=== PATIENT | female | born 1955 | race Caucasian/White ===

== ENCOUNTER 2017-11-17 16:03 | Emergency (ER) | payer BC, MEDICAID ==
--- NOTE | 2017-11-17 16:35 | EDM.PDOC ---
ED HPI GENERAL MEDICAL PROBLEM - General Chief Complaint: General Stated Complaint: ABDOMINAL PAIN Time Seen by Provider: 11/17/17 16:10 Source of Information: Reports: Patient History Limitations: Reports: No Limitations - History of Present Illness INITIAL COMMENTS - FREE TEXT/NARRATIVE: According to patient she has been having abdominal pain for past 4 days. Pain has been all over the abdomen and is colicky. She has been having loose stools, which has got worse today. She claims she has had 7 bouts of diarrhea today. Stool have got from watery to mucus brown stools now. Abdominal cramping before stools. No blood in the stools. No fever or chills. Abdominal pain has got worse. Has been passing flatus. No dysuria, but has dark colored urine. No cough, SOB or wheezing. Onset Date: 11/13/17 Duration: Intermittent, Waxing/Waning Location: Reports: Abdomen Quality: Reports: Ache, Dull Severity: Moderate Associated Symptoms: Reports: Nausea/Vomiting, Weakness. Denies: Confusion, Chest Pain, Cough, Diaphoresis, Fever/Chills, Headaches, Malaise, Rash, Seizure , Shortness of Breath, Syncope - Related Data Allergies Allergy/AdvReac Type Severity Reaction Status Date / Time codeine Allergy Nausea and Verified 11/17/17 16:29 Vomiting Home Meds: Home Meds Insulin Aspart [NovoLOG] 24 unit SQ TID 11/17/17 [History] Insulin Glarg,Human.Rec.Analog [Lantus] 36 unit SQ BID 11/17/17 [History] glipiZIDE [Glipizide ER] 20 mg PO DAILY 11/17/17 [History] metFORMIN [Glucophage] 500 mg PO BIDMEALS 11/17/17 [History] ED ROS GENERAL - Review of Systems Review Of Systems: See Below Constitutional: Denies: Fever, Chills, Night Sweats, Diaphoresis HEENT: Denies: Rhinitis, Sinus Problem, Throat Pain, Throat Swelling Respiratory: Denies: Shortness of Breath, Wheezing, Pleuritic Chest Pain, Cough , Sputum Cardiovascular: Denies: Chest Pain, Lightheadedness GI/Abdominal: Reports: Abdominal Pain, Diarrhea, Nausea, Vomiting : Denies: Dysuria, Flank Pain, Frequency, Hematuria Musculoskeletal: Denies: Joint Pain, Joint Swelling Skin: Denies: Jaundice, Pruritis, Rash, Wound ED EXAM, GENERAL - Physical Exam Exam: See Below Exam Limited By: No Limitations General Appearance: Alert, WD/WN, No Apparent Distress Eye Exam: Bilateral Eye: EOMI, PERRL Ears: Normal External Exam, Normal Canal, Hearing Grossly Normal, Normal TMs Ear Exam: Bilateral Ear: Auricle Normal, Canal Normal, TM normal Nose: Normal Inspection, Normal Mucosa, No Blood Throat/Mouth: Normal Inspection, Normal Lips, Normal Teeth, Normal Gums, Normal Oropharynx, Normal Voice, No Airway Compromise Head: Atraumatic, Normocephalic Neck: Normal Inspection, Supple, Non-Tender, Full Range of Motion Respiratory/Chest: No Respiratory Distress, Lungs Clear, Normal Breath Sounds, No Accessory Muscle Use, Chest Non-Tender Cardiovascular: Normal Peripheral Pulses, Regular Rate, Rhythm, No Edema, No Gallop, No JVD, No Murmur, No Rub GI/Abdominal: Normal Bowel Sounds, Soft, No Organomegaly, No Distention, No Abnormal Bruit, No Mass, Tender (all over the abdomen.). No: Guarding, Rigid, Rebound Back Exam: Normal Inspection, Full Range of Motion Extremities: Normal Inspection, Normal Range of Motion, Non-Tender, Normal Capillary Refill, No Pedal Edema Skin Exam: Warm, Intact Course - Vital Signs Text/Narrative:: Pt's clinical exam is normal. She has been slightly nauseous. She has acute GE. Will get CBC, CMP, Lipase. AXR now. CBC is normal. CMP is normal and electrolytes are normal. Her Abdominal xray appears normal. UA shows 5-15 WBC and lucs positiv. She has acute gastroenteritis with normal hydration. She did receive toradol 60mg IM and Zofran 4mg IM. Advised clear liquid diet for next 24 hrs. Education given. Also she has mild UTI, started on cipro 500mg twice daily for 3 days. Followup with her primary care provider next week for recheck. - Orders/Labs/Meds Orders: Active Orders 24 hr Category Date Time Status Abdomen 1V Upright [CR] Stat Exams 11/17/17 16:28 Taken Ketorolac [Toradol] Med 11/17/17 17:51 Once 60 mg IM ONETIME ONE Ondansetron [Zofran] Med 11/17/17 17:52 Once 4 mg IM ONETIME ONE Medication Orders Ketorolac Tromethamine (Toradol) 60 mg IM ONETIME ONE Stop: 11/17/17 17:52 Ondansetron HCl (Zofran) 4 mg IM ONETIME ONE Stop: 11/17/17 17:53 Labs: Laboratory Tests 11/17/17 11/17/17 11/17/17 Range/Units 14:30 16:45 16:45 WBC 12.7 H D (4.0-11.0) K/uL RBC 5.21 (3.80-5.80) M/uL Hgb 15.5 (11.5-16.5) g/dL Hct 45.1 (37.0-47.0) % MCV 87 (76-96) fL MCH 29.8 (27.0-32.0) pg MCHC 34.4 (31.0-35.0) g/dL RDW 13.7 (11.0-16.0) % Plt Count 116 L (150-500) K/uL MPV 10.5 H (6.0-10.0) fL Neut % (Auto) 86.5 H (45.0-70.0) % Lymph % (Auto) 8.8 L (20.0-40.0) % [place] % (Auto) 4.1 (3.0-10.0) % Eos % (Auto) 0.3 L (1.0-5.0) % Baso % (Auto) 0.3 (0.0-0.5) % Neut # (Auto) 10.94 H (2.00-7.50) K/uL Lymph # (Auto) 1.11 L (1.50-4.00) K/uL [place] # (Auto) 0.52 (0.20-0.80) K/uL Eos # (Auto) 0.04 (0.04-0.40) K/uL Baso # (Auto) 0.04 (0.02-0.10) K/uL Sodium 138 (136-145) mmol/L Potassium 3.9 (3.5-5.1) mmol/L Chloride 99 (98-107) mmol/L Carbon Dioxide 25.0 (21.0-32.0) mmol/L Anion Gap 17.9 H (5.0-15.0) mmol/L BUN 14 (8-26) mg/dL Creatinine 0.92 (0.55-1.02) mg/dL Est Cr Clr Drug Dosing TNP Estimated GFR (MDRD) > 60 (>60) MLS/MIN BUN/Creatinine Ratio 15.2 (6-25) Glucose 228 H (74-100) mg/dL Calcium 8.8 (8.5-10.1) mg/dL Total Bilirubin 1.5 H D (0.0-1.0) mg/dL AST 31 (15-37) U/L ALT 41 (12-78) U/L Alkaline Phosphatase 137 H (46-116) U/L Total Protein 7.9 (6.4-8.2) g/dL Albumin 3.5 (3.4-5.0) g/dL Globulin 4.4 H (2.2-4.2) g/dL Albumin/Globulin Ratio 0.8 (0.8-2.0) Lipase 75 (73-393) U/L Urine Color Yellow Urine Appearance Clear (CLEAR) Urine pH 5.0 (5.0-8.0) Ur Specific [place] >= 1.030 (1.003-1.030) Urine Protein Negative (NEGATIVE) mg/dL Urine Glucose (UA) Negative (NEGATIVE) mg/dL Urine Ketones 15 H (NEGATIVE) mg/dL Urine Occult Blood Trace-intact H (NEGATIVE) Urine Nitrite Negative (NEGATIVE) Urine Bilirubin Negative (NEGATIVE) Urine Urobilinogen 0.2 (0.2-1.0) E.U./dL Ur Leukocyte Esterase Trace H (NEGATIVE) Urine RBC 0-5 H /HPF Urine WBC 5-10 H /HPF Ur Squamous Epith Cells Few /HPF Urine Bacteria Few /HPF Meds: Medications Generic Name Dose Route Start Last Admin Trade Name Freq PRN Reason Stop Dose Admin Ketorolac Tromethamine 60 mg 11/17/17 17:51 Toradol IM 11/17/17 17:52 ONETIME ONE Ondansetron HCl 4 mg 11/17/17 17:52 Zofran IM 11/17/17 17:53 ONETIME ONE Discontinued Medications Generic Name Dose Route Start Last Admin Trade Name Freq PRN Reason Stop Dose Admin Ketorolac Tromethamine Confirm 11/17/17 17:51 Toradol Administered 11/17/17 17:52 Dose 60 mg .ROUTE .STK-MED ONE Ondansetron HCl Confirm 11/17/17 17:52 Zofran Administered 11/17/17 17:53 Dose 4 mg .ROUTE .STK-MED ONE Departure - Departure Time of Disposition: 18:00 Disposition: Home, Self-Care 01 Condition: Good Clinical Impression: Acute gastroenteritis, UTI (urinary tract infection) - Discharge Information Referrals: PCP,None [Primary Care Provider] - Forms: ED Department Discharge Additional Instructions: She has acute gastroenteritis with normal hydration. She did receive toradol 60mg IM and Zofran 4mg IM. Advised clear liquid diet for next 24 hrs. Education given. Also she has mild UTI, started on cipro 500mg twice daily for 3 days. Followup with her primary care provider next week for recheck. - Problem List & Annotations (1) Acute gastroenteritis SNOMED Code(s): 24082631 Code(s): K52.9 - NONINFECTIVE GASTROENTERITIS AND COLITIS, UNSPECIFIED Status: Acute Current Visit: Yes (2) UTI (urinary tract infection) SNOMED Code(s): 67408396 Code(s): N39.0 - URINARY TRACT INFECTION, SITE NOT SPECIFIED Status: Acute Current Visit: Yes - Problem List Review Problem List Initiated/Reviewed/Updated: Yes - My Orders Last 24 Hours: My Active Orders 11/17/17 16:28 Abdomen 1V Upright [CR] Stat 11/17/17 17:51 Ketorolac [Toradol] 60 mg IM ONETIME ONE 11/17/17 17:52 Ondansetron [Zofran] 4 mg IM ONETIME ONE - Assessment/Plan Last 24 Hours: My Active Orders 11/17/17 16:28 Abdomen 1V Upright [CR] Stat 11/17/17 17:51 Ketorolac [Toradol] 60 mg IM ONETIME ONE 11/17/17 17:52 Ondansetron [Zofran] 4 mg IM ONETIME ONE Assessment:: Acute GE with UTi Plan: She has acute gastroenteritis with normal hydration. She did receive toradol 60mg IM and Zofran 4mg IM. Advised clear liquid diet for next 24 hrs. Education given. Also she has mild UTI, started on cipro 500mg twice daily for 3 days. Followup with her primary care provider next week for recheck.
[2017-11-17] MEDS ORDERED: Ciprofloxacin 500 MG Tab ONE (17:00)
[2017-11-17] MEDS ORDERED: Ondansetron 4 MG Tab.DIS ONE (17:00)
[2017-11-17] MEDS ORDERED: Ketorolac 60 MG/2 ML SDV IM ONE (17:51)
[2017-11-17] MEDS ORDERED: Ketorolac 60 MG/2 ML SDV ONE (17:51)
[2017-11-17] MEDS ORDERED: Ondansetron 4 MG/2 ML SDV ONE (17:52)
[2017-11-17] MEDS ORDERED: Ondansetron 4 MG/2 ML SDV IM ONE (17:52)
--- NOTE | 2017-11-18 23:31 | CR ---
DATE OF SERVICE: 11/17/2017 CLINICAL DATA: Abdominal pain or distension. UPRIGHT ABDOMEN: There are surgical clips in the right upper quadrant consistent with prior cholecystectomy. There are a few scattered air-fluid levels noted within the colon and small bowel on the upright view. No distended loops of bowel. No free air. Followup imaging is recommended if clinically indicated. [id number] MTDD
== END 2017-11-17 18:00 | disposition home or self-care (01) ==
LOC: LB.ED 16:03
DX: K52.9 Noninfective gastroenteritis and colitis, unspecified (principal); N39.0 Urinary tract infection, site not specified; Z88.5 Allergy status to narcotic agent; Z79.4 Long term (current) use of insulin
CPT/HCPCS: 36415; 74018; 80053; 81001; 83690; 85025; 96372; 99284; A9270; J1885; J2405

== ENCOUNTER 2020-11-06 11:14 | Emergency (ER) | payer BC ==
[2020-11-06] MEDS: Sodium Chloride 0.9% 50 ML SDV FLUSH ONE (11:30)
[2020-11-06] MEDS: Ketorolac 60 MG/2 ML SDV IM ONE (11:34)
[2020-11-06] MEDS: Orphenadrine 60 MG/2 ML Inj IM ONE (11:41)
--- NOTE | 2020-11-06 12:05 | EDM.PDOC ---
ED HPI GENERAL MEDICAL PROBLEM - General Chief Complaint: General Stated Complaint: HIP PAIN Time Seen by Provider: 11/06/20 11:30 Source of Information: Reports: Patient, Significant Other History Limitations: Reports: No Limitations - History of Present Illness INITIAL COMMENTS - FREE TEXT/NARRATIVE: Ms. Rajan is a 65 YO Diabetic female who is here for chronic pain from aw aiting to have total Rt hip replaced. She is scheduled in December for surgery. She is awaiting still to be cleared by Cardiology. Ortho has her off all opioid medications prior to her surgery. She has concerns of not being able to walk to the bathroom or do normal ADL due to her pain and difficulty ambulating. Both LE are swollen with mild erythema. Skin is warm. No Fever. No abdominal pain. No N, V or D. Onset: Other (chronic osteoarthritis ) Duration: Chronic Location: Reports: Lower Extremity, Right Quality: Reports: Ache, Throbbing Severity: Severe Improves with: Reports: None Worsens with: Reports: Movement Context: Reports: Other Associated Symptoms: Reports: Weakness Treatments COMPLAINT ANALYST: Reports: NSAIDS (meloxicam ) Right Hip Pain Score (Numeric/FACES): 7 - Related Data Allergies Allergy/AdvReac Type Severity Reaction Status Date / Time codeine Allergy Nausea and Verified 11/06/20 11:19 Vomiting Home Meds: Home Meds Insulin Aspart [NovoLOG] 12 unit SQ TID 11/17/17 [History] Fluticasone/Vilanterol [Breo Ellipta 100-25 MCG Inhalation Kit] 1 inhaler PO DAILY 11/06/20 [History] Insulin Degludec [Tresiba] 36 units SQ ASDIRECTED 11/06/20 [History] Liraglutide [Victoza] See Protocol 11/06/20 [History] Meloxicam 15 mg PO DAILY 11/06/20 [History] lisinopriL [Lisinopril] 20 mg PO DAILY 11/06/20 [History] Social & Family History - Caffeine Use Caffeine Use: Reports: None - Recreational Drug Use Recreational Drug Use: No ED ROS GENERAL - Review of Systems Review Of Systems: Comprehensive ROS is negative, except as noted in HPI. Musculoskeletal: Reports: Leg Pain, Joint Swelling, Muscle Pain, Muscle Stiffness Skin: Reports: Dryness, Erythema, Other (edema BLE) ED EXAM, GENERAL - Physical Exam Exam: See Below Exam Limited By: No Limitations General Appearance: Alert, Anxious, Severe Distress Eye Exam: Bilateral Eye: PERRL Ears: Normal External Exam Nose: Normal Inspection, Normal Mucosa Throat/Mouth: Normal Inspection, Normal Lips Head: Atraumatic, Normocephalic Neck: Normal Inspection, Supple, Non-Tender Respiratory/Chest: No Respiratory Distress, Lungs Clear, Normal Breath Sounds Cardiovascular: Normal Peripheral Pulses, Regular Rate, Rhythm Peripheral Pulses: 2+: Brachial (R), Radial (L) GI/Abdominal: Normal Bowel Sounds, Soft, Non-Tender Back Exam: Normal Inspection Extremities: Pedal Edema, Leg Pain Neurological: Alert, Oriented, CN II-XII Intact Psychiatric: Anxious, Depressed Mood, Tearful Skin Exam: Warm, Dry, Intact, Erythema Lymphatic: No Adenopathy Course - Vital Signs Last Recorded V/S: Last Vital Signs Temp 37.1 C 11/06/20 13:21 Pulse 96 11/06/20 13:21 Resp 16 11/06/20 13:21 BP 163/74 H 11/06/20 13:21 Pulse Ox 97 11/06/20 13:21 - Orders/Labs/Meds Orders: Active Orders 24 hr Category Date Time Status Chest w Cont [CT] Stat Exams 11/06/20 12:18 Taken UA RFX SHERYL AND CULT IF INDIC [URIN] Stat Lab 11/06/20 11:23 Ordered Iopamidol [Isovue-370 (76%)] Med 11/06/20 13:30 Active 100 ml IV . DIRECTED Sodium Chloride 0.9% [Normal Saline] 1,000 ml Med 11/06/20 12:15 Active IV ASDIRECTED Medication Orders Sodium Chloride (Normal Saline) 1,000 mls @ 500 mls/hr IV ASDIRECTED MANJIT Last Admin: 11/06/20 12:34 Dose: 500 mls/hr Documented by: AYSE Iopamidol (Isovue-370 (76%)) 100 ml IV . DIRECTED [facility] Labs: Laboratory Tests 11/06/20 11/06/20 11/06/20 Range/Units 11:23 11:40 11:40 WBC 5.8 D (4.0-11.0) K/uL RBC 4.18 (3.80-5.80) M/uL Hgb 13.0 (11.5-16.5) g/dL Hct 38.9 (37.0-47.0) % MCV 93 (76-96) fL MCH 31.1 (27.0-32.0) pg MCHC 33.4 (31.0-35.0) g/dL RDW 14.8 (11.0-16.0) % Plt Count 97 L (150-500) K/uL MPV 9.2 (6.0-10.0) fL Neut % (Auto) 74.8 H (45.0-70.0) % Lymph % (Auto) 16.4 L (20.0-40.0) % [place] % (Auto) 7.1 (3.0-10.0) % Eos % (Auto) 1.2 (1.0-5.0) % Baso % (Auto) 0.5 (0.0-0.5) % Neut # (Auto) 4.35 (2.00-7.50) K/uL Lymph # (Auto) 0.95 L (1.50-4.00) K/uL [place] # (Auto) 0.41 (0.20-0.80) K/uL Eos # (Auto) 0.07 (0.04-0.40) K/uL Baso # (Auto) 0.03 (0.02-0.10) K/uL D-Dimer, Quantitative 2280 H (0-400) ng/mL Sodium 141 (136-145) mmol/L Potassium 4.2 (3.5-5.1) mmol/L Chloride 104 (98-107) mmol/L Carbon Dioxide 32.1 H D (21.0-32.0) mmol/L Anion Gap 9.1 (5.0-15.0) mmol/L BUN 15 (8-26) mg/dL Creatinine 0.86 (0.55-1.02) mg/dL Est Cr Clr Drug Dosing 54.67 mL/min Estimated GFR (MDRD) > 60 (>60) MLS/MIN BUN/Creatinine Ratio 17.4 (6-25) Glucose 160 H (74-100) mg/dL Calcium 8.2 L (8.5-10.1) mg/dL Total Bilirubin 1.6 H (0.0-1.0) mg/dL AST 37 (15-37) U/L ALT 28 (12-78) U/L Alkaline Phosphatase 130 H (46-116) U/L Total Protein 6.8 (6.4-8.2) g/dL Albumin 2.6 L (3.4-5.0) g/dL Globulin 4.2 (2.2-4.2) g/dL Albumin/Globulin Ratio 0.6 L (0.8-2.0) SARS-CoV-2 RNA (YARELIS) (NEGATIVE) 11/06/20 Range/Units 12:35 WBC (4.0-11.0) K/uL RBC (3.80-5.80) M/uL Hgb (11.5-16.5) g/dL Hct (37.0-47.0) % MCV (76-96) fL MCH (27.0-32.0) pg MCHC (31.0-35.0) g/dL RDW (11.0-16.0) % Plt Count (150-500) K/uL MPV (6.0-10.0) fL Neut % (Auto) (45.0-70.0) % Lymph % (Auto) (20.0-40.0) % [place] % (Auto) (3.0-10.0) % Eos % (Auto) (1.0-5.0) % Baso % (Auto) (0.0-0.5) % Neut # (Auto) (2.00-7.50) K/uL Lymph # (Auto) (1.50-4.00) K/uL [place] # (Auto) (0.20-0.80) K/uL Eos # (Auto) (0.04-0.40) K/uL Baso # (Auto) (0.02-0.10) K/uL D-Dimer, Quantitative (0-400) ng/mL Sodium (136-145) mmol/L Potassium (3.5-5.1) mmol/L Chloride (98-107) mmol/L Carbon Dioxide (21.0-32.0) mmol/L Anion Gap (5.0-15.0) mmol/L BUN (8-26) mg/dL Creatinine (0.55-1.02) mg/dL Est Cr Clr Drug Dosing mL/min Estimated GFR (MDRD) (>60) MLS/MIN BUN/Creatinine Ratio (6-25) Glucose (74-100) mg/dL Calcium (8.5-10.1) mg/dL Total Bilirubin (0.0-1.0) mg/dL AST (15-37) U/L ALT (12-78) U/L Alkaline Phosphatase (46-116) U/L Total Protein (6.4-8.2) g/dL Albumin (3.4-5.0) g/dL Globulin (2.2-4.2) g/dL Albumin/Globulin Ratio (0.8-2.0) SARS-CoV-2 RNA (YARELIS) Negative (NEGATIVE) Meds: Medications Generic Name Dose Route Start Last Admin Trade Name Freq PRN Reason Stop Dose Admin Sodium Chloride 1,000 mls @ 500 mls/hr 11/06/20 12:15 11/06/20 12:34 Normal Saline IV 500 mls/hr ASDIRECTED MANJIT Administration Iopamidol 100 ml 11/06/20 13:30 Isovue-370 (76%) IV . DIRECTED MANJIT Discontinued Medications Generic Name Dose Route Start Last Admin Trade Name Freq PRN Reason Stop Dose Admin Diazepam 5 mg 11/06/20 11:25 11/06/20 12:08 Valium IV 11/06/20 11:26 5 mg ONETIME ONE Administration Diazepam Confirm 11/06/20 13:47 Valium. Administered 11/06/20 13:48 Dose 30 mg .ROUTE .STK-MED ONE Ketorolac Tromethamine 60 mg 11/06/20 11:24 11/06/20 11:34 Toradol IM 11/06/20 11:25 60 mg ONETIME ONE Administration Orphenadrine Citrate 60 mg 11/06/20 11:26 11/06/20 11:41 Norflex IM 11/06/20 11:27 60 mg ONETIME ONE Administration Sodium Chloride 50 ml 11/06/20 13:25 Normal Saline FLUSH 11/06/20 13:26 ONETIME ONE Departure - Departure Time of Disposition: 14:00 Disposition: Home, Self-Care 01 Condition: Fair Clinical Impression: Osteoarthritis (arthritis due to wear and tear of joints) Qualifiers: Osteoarthritis location: hip Osteoarthritis type: primary Laterality: bilateral Qualified Code(s): M16.0 - Bilateral primary osteoarthritis of hip - Discharge Information *PRESCRIPTION DRUG MONITORING PROGRAM REVIEWED*: Not Applicable Instructions: Decision Aid - Osteoarthritis, Hip, What You Need to Know About Osteoarthritis Referrals: PCP,None [Primary Care Provider] - Forms: ED Department Discharge Additional Instructions: Continue with NSAIDS for pain Cyclobenzaprine for muscle discomfort Diazepam for sleep Consult social insurance adviser Sunday for care options FU with Latisha in the clinic next week Sepsis Event Note (ED) - Evaluation Sepsis Screening Result: No Definite Risk - Focused Exam Vital Signs: Vital Signs Temp Pulse Resp BP Pulse Ox 11/06/20 13:21 37.1 C 96 16 163/74 H 97 11/06/20 12:10 92 16 95 11/06/20 11:14 37.2 C 108 H 18 112/50 L 96 - My Orders Last 24 Hours: My Active Orders 11/06/20 11:23 UA RFX SHERYL AND CULT IF INDIC [URIN] Stat 11/06/20 12:15 Sodium Chloride 0.9% [Normal Saline] 1,000 ml IV ASDIRECTED 11/06/20 12:18 Chest w Cont [CT] Stat 11/06/20 13:30 Iopamidol [Isovue-370 (76%)] 100 ml IV . DIRECTED - Assessment/Plan Last 24 Hours: My Active Orders 11/06/20 11:23 UA RFX SHERYL AND CULT IF INDIC [URIN] Stat 11/06/20 12:15 Sodium Chloride 0.9% [Normal Saline] 1,000 ml IV ASDIRECTED 11/06/20 12:18 Chest w Cont [CT] Stat 11/06/20 13:30 Iopamidol [Isovue-370 (76%)] 100 ml IV . DIRECTED Assessment:: Chronic osteoarthritis Plan: Continue with NSAIDS Hydroxyzine for sleep Consult social insurance adviser Sunday for care options FU with Latisha in the clinic next week
[2020-11-06] MEDS: diazePAM 5 MG/ML MDV IV ONE (12:08)
[2020-11-06] MEDS: Sodium Chloride 0.9% 1,000 ML IV SCH (12:34)
[2020-11-06] MEDS ORDERED: Iopamidol 755 Mg/ML 100 ML Bottle IV SCH (13:30)
[2020-11-06] MEDS: Diazepam 5 MG Tab ONE (13:47)
[2020-11-06] MEDS ORDERED: Diazepam 5 MG Tab ONE (14:00)
[2020-11-06] MEDS ORDERED: Cyclobenzaprine 10 MG Tab ONE (14:00)
--- NOTE | 2020-11-06 15:18 | CT ---
CLINICAL DATA: R/O PE. ENHANCED CHEST CT, 06 NOVEMBER 2020: Multislice acquisition with IV contrast was performed. No priors. There is suboptimal contrast opacification of the pulmonary arteries. I do not see evidence of a PE. No pneumothorax. No pleural effusions. No aortic aneurysm or dissection. There are atelectatic changes in the dependent portion of both lungs and in both lung bases, right greater than left with a small area of consolidation in the right costophrenic angle. Pneumonia should be considered. There are also subtle ground-glass opacities in the right upper lung and left upper lobe. Pneumonia should be considered. There is a small calcified subpleural nodule in the left lower lobe, consistent with prior granulomatous disease. The lung are otherwise clear. The heart size is normal. There are moderate coronary artery calcifications. No significant pericardial effusion. No hilar or mediastinal adenopathy. There is a large amount of fluid within the peritoneal cavity consistent with ascites. The liver has a lobulated contour, consistent with cirrhosis. The spleen also appears enlarged. No other significant findings. Job: [id number] [facility]
== END 2020-11-06 14:15 | disposition home or self-care (01) ==
LOC: LB.ED 11:14
DX: M16.0 Bilateral primary osteoarthritis of hip (principal); Z88.5 Allergy status to narcotic agent; Z20.822 Contact with and (suspected) exposure to COVID-19
CPT/HCPCS: 36415; 71260; 80053; 85025; 85379; 87635; 96372; 96374; 99284; A9270; J1885; J2360; J3360; J7030; 99283; U0002

== ENCOUNTER 2020-11-12 11:32 | Emergency (ER) | payer BC ==
[2020-11-12] MEDS ORDERED: Morphine 2 MG/ML SYRINGE SUBCUT PRN (11:47)
[2020-11-12] MEDS ORDERED: Ondansetron 4 MG Tab.DIS PO ONE (11:52)
[2020-11-12] MEDS ORDERED: Morphine 2 MG/ML SYRINGE ONE (11:55)
[2020-11-12] MEDS ORDERED: Ondansetron 4 MG/2 ML SDV ONE (12:13)
--- NOTE | 2020-11-12 12:36 | EDM.PDOC ---
ED HPI GENERAL MEDICAL PROBLEM - General Chief Complaint: General Stated Complaint: FALL Time Seen by Provider: 11/12/20 11:38 Source of Information: Reports: Patient, Other (EMS) History Limitations: Reports: Other (Uncontrolled pain ) - History of Present Illness INITIAL COMMENTS - FREE TEXT/NARRATIVE: Ms. Rajan is a 65 YO Diabetic female who is here for chronic pain from awaiting to have total Rt hip replaced. She is scheduled in December for surgery. She is awaiting still to be cleared by Cardiology. Ortho has her off all opioid medications prior to her surgery. She has concerns of not being able to walk to the bathroom or do normal ADL due to her pain and difficulty ambulating. Today she presents to the ED after falling in her bathroom and not being able to get up. She was brought in by EMS. Her pain is 10/10. Both LE are swollen with mild erythema. Skin is warm and dry. No Fever. No abdominal pain. No N, V or D. 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(s), See EMS Report, Splint(s), Other (see below) (Back board) - Related Data Allergies Allergy/AdvReac Type Severity Reaction Status Date / Time codeine Allergy Nausea and Verified 11/06/20 11:19 Vomiting Home Meds: Home Meds Insulin Aspart [NovoLOG] 12 unit SQ TID 11/17/17 [History] Fluticasone/Vilanterol [Breo Ellipta 100-25 MCG Inhalation Kit] 1 inhaler PO DAILY 11/06/20 [History] Insulin Degludec [Tresiba] 36 units SQ ASDIRECTED 11/06/20 [History] Liraglutide [Victoza] See Protocol 11/06/20 [History] Meloxicam 15 mg PO DAILY 11/06/20 [History] lisinopriL [Lisinopril] 20 mg PO DAILY 11/06/20 [History] Past Medical History Cardiovascular History: Reports: Hypertension Respiratory History: Reports: Asthma Musculoskeletal History: Reports: Osteoarthritis, Other (See Below) Other Musculoskeletal History: plantar facitis Endocrine/Metabolic History: Reports: Diabetes, Type II - Past Surgical History Musculoskeletal Surgical History: Reports: Other (See Below) Other Musculoskeletal Surgeries/Procedures:: RT HIP pain Social & Family History - Tobacco Use Tobacco Use Status *Q: Former Tobacco User Used Tobacco, but Quit: Yes Month/Year Tobacco Last Used: 09/1990 - Caffeine Use Caffeine Use: Reports: None - Recreational Drug Use Recreational Drug Use: No ED ROS GENERAL - Review of Systems Review Of Systems: Comprehensive ROS is negative, except as noted in HPI. Musculoskeletal: Reports: Leg Pain, Joint Pain, Joint Swelling, Other (Hip pain) ED EXAM, GENERAL - Physical Exam Exam: See Below Exam Limited By: Other (Trauma and pain) General Appearance: Anxious, Severe Distress Ears: Normal External Exam, Normal Canal Nose: Normal Inspection, Normal Mucosa, No Blood Throat/Mouth: Normal Inspection, Normal Lips, Normal Teeth, Normal Oropharynx, Normal Voice Head: Atraumatic, Normocephalic Neck: Normal Inspection, Supple, Non-Tender, Full Range of Motion Respiratory/Chest: No Respiratory Distress, Lungs Clear, Normal Breath Sounds Cardiovascular: Normal Peripheral Pulses, Regular Rate, Rhythm, No Edema, No JVD Peripheral Pulses: 2+: Radial (L), Radial (R), Posterior Tibial (L), Posterior Tibial (R) GI/Abdominal: Normal Bowel Sounds, Soft, Non-Tender (Female) Exam: Normal External Exam Back Exam: Other (Trauma ) Extremities: Non-Tender, No Pedal Edema Neurological: Alert, Oriented, Normal Cognition, No Motor/Sensory Deficits Psychiatric: Normal Affect, Normal Mood Skin Exam: Warm, Dry, Intact, Other (Mild venous stasis rash both feet) Lymphatic: No Adenopathy #1 Interpretation EKG Date: 11/12/20 Rhythm: NSR Course - Vital Signs Last Recorded V/S: Last Vital Signs Temp 36.3 C 11/12/20 11:45 Pulse 100 11/12/20 11:45 Resp 16 11/12/20 11:45 BP 149/75 H 11/12/20 11:45 Pulse Ox 90 L 11/12/20 11:45 - Orders/Labs/Meds Orders: Active Orders 24 hr Category Date Time Status Abdomen w Cont [CT] Stat Exams 11/12/20 Taken Chest w Cont [CT] Stat Exams 11/12/20 Taken Lumbar Spine wo Cont [CT] Stat Exams 11/12/20 11:43 Taken Iopamidol [Isovue-300 (61%)] Med 11/12/20 13:45 Active 100 ml IV . DIRECTED Morphine Med 11/12/20 11:47 Active 1 mg SUBCUT Q1H PRN Sodium Chloride 0.9% [Normal Saline] 50 ml Med 11/12/20 13:45 Active IV ASDIRECTED Medication Orders Sodium Chloride (Normal Saline) 50 mls @ 3 mls/sec IV ASDIRECTED MANJIT Last Admin: 11/12/20 14:08 Dose: 3 mls/sec Documented by: ARMIDA Iopamidol (Iopamidol 612 Mg/Ml 100 Ml Bottle) 100 ml IV . DIRECTED MANJIT Last Admin: 11/12/20 14:08 Dose: 100 ml Documented by: ARMIDA Morphine Sulfate (Morphine 2 Mg/Ml Syringe) 1 mg SUBCUT Q1H PRN PRN Reason: Pain (severe 7-10) Last Admin: 11/12/20 12:00 Dose: 1 mg Documented by: ROSMERY Labs: Laboratory Tests 11/12/20 11/12/20 11/12/20 Range/Units 12:30 12:30 12:35 WBC (4.0-11.0) K/uL RBC (3.80-5.80) M/uL Hgb (11.5-16.5) g/dL Hct (37.0-47.0) % MCV (76-96) fL MCH (27.0-32.0) pg MCHC (31.0-35.0) g/dL RDW (11.0-16.0) % Plt Count (150-500) K/uL MPV (6.0-10.0) fL Neut % (Auto) (45.0-70.0) % Lymph % (Auto) (20.0-40.0) % [place] % (Auto) (3.0-10.0) % Eos % (Auto) (1.0-5.0) % Baso % (Auto) (0.0-0.5) % Neut # (Auto) (2.00-7.50) K/uL Lymph # (Auto) (1.50-4.00) K/uL [place] # (Auto) (0.20-0.80) K/uL Eos # (Auto) (0.04-0.40) K/uL Baso # (Auto) (0.02-0.10) K/uL PT 12.1 H (9.0-11.5) sec INR 1.2 (1.0-3.5) Sodium 140 (136-145) mmol/L Potassium 3.9 (3.5-5.1) mmol/L Chloride 103 (98-107) mmol/L Carbon Dioxide 32.2 H (21.0-32.0) mmol/L Anion Gap 8.7 (5.0-15.0) mmol/L BUN 19 D (8-26) mg/dL Creatinine 0.88 (0.55-1.02) mg/dL Est Cr Clr Drug Dosing TNP Estimated GFR (MDRD) > 60 (>60) MLS/MIN BUN/Creatinine Ratio 21.6 (6-25) Glucose 208 H (74-100) mg/dL Calcium 8.2 L (8.5-10.1) mg/dL Total Bilirubin 1.3 H (0.0-1.0) mg/dL AST 41 H (15-37) U/L ALT 36 (12-78) U/L Alkaline Phosphatase 153 H (46-116) U/L Total Protein 7.0 (6.4-8.2) g/dL Albumin 2.7 L (3.4-5.0) g/dL Globulin 4.3 H (2.2-4.2) g/dL Albumin/Globulin Ratio 0.6 L (0.8-2.0) SARS-CoV-2 RNA (YARELIS) (NEGATIVE) Blood Type O POSITIVE Gel Antibody Screen Negative 11/12/20 11/12/20 Range/Units 12:48 12:49 WBC 5.5 (4.0-11.0) K/uL RBC 4.16 (3.80-5.80) M/uL Hgb 13.1 (11.5-16.5) g/dL Hct 39.6 (37.0-47.0) % MCV 95 (76-96) fL MCH 31.5 (27.0-32.0) pg MCHC 33.1 (31.0-35.0) g/dL RDW 15.1 (11.0-16.0) % Plt Count 100 L (150-500) K/uL MPV 9.8 (6.0-10.0) fL Neut % (Auto) 74.1 H (45.0-70.0) % Lymph % (Auto) 14.8 L (20.0-40.0) % [place] % (Auto) 8.0 (3.0-10.0) % Eos % (Auto) 2.6 (1.0-5.0) % Baso % (Auto) 0.5 (0.0-0.5) % Neut # (Auto) 4.07 (2.00-7.50) K/uL Lymph # (Auto) 0.81 L (1.50-4.00) K/uL [place] # (Auto) 0.44 (0.20-0.80) K/uL Eos # (Auto) 0.14 (0.04-0.40) K/uL Baso # (Auto) 0.03 (0.02-0.10) K/uL PT (9.0-11.5) sec INR (1.0-3.5) Sodium (136-145) mmol/L Potassium (3.5-5.1) mmol/L Chloride (98-107) mmol/L Carbon Dioxide (21.0-32.0) mmol/L Anion Gap (5.0-15.0) mmol/L BUN (8-26) mg/dL Creatinine (0.55-1.02) mg/dL Est Cr Clr Drug Dosing Estimated GFR (MDRD) (>60) MLS/MIN BUN/Creatinine Ratio (6-25) Glucose (74-100) mg/dL Calcium (8.5-10.1) mg/dL Total Bilirubin (0.0-1.0) mg/dL AST (15-37) U/L ALT (12-78) U/L Alkaline Phosphatase (46-116) U/L Total Protein (6.4-8.2) g/dL Albumin (3.4-5.0) g/dL Globulin (2.2-4.2) g/dL Albumin/Globulin Ratio (0.8-2.0) SARS-CoV-2 RNA (YARELIS) Negative (NEGATIVE) Blood Type Gel Antibody Screen Meds: Medications Generic Name Dose Route Start Last Admin Trade Name Freq PRN Reason Stop Dose Admin Sodium Chloride 50 mls @ 3 mls/sec 11/12/20 13:45 11/12/20 14:08 Normal Saline IV 3 mls/sec ASDIRECTED MANJIT Administration Iopamidol 100 ml 11/12/20 13:45 11/12/20 14:08 Iopamidol 612 Mg/Ml 100 Ml Bottle IV 100 ml . DIRECTED MANJIT Administration Morphine Sulfate 1 mg 11/12/20 11:47 11/12/20 12:00 Morphine 2 Mg/Ml Syringe SUBCUT 1 mg Q1H PRN Administration Pain (severe 7-10) Discontinued Medications Generic Name Dose Route Start Last Admin Trade Name Freq PRN Reason Stop Dose Admin Morphine Sulfate Confirm 11/12/20 11:55 Morphine 2 Mg/Ml Syringe Administered 11/12/20 11:56 Dose 2 mg .ROUTE .STK-MED ONE Morphine Sulfate 1 mg 11/12/20 13:30 Morphine 2 Mg/Ml Syringe IVPUSH 11/12/20 13:31 Q1H ONE Ondansetron HCl 4 mg 11/12/20 11:52 Ondansetron 4 Mg Tab.Dis PO 11/12/20 11:53 ONETIME ONE Ondansetron HCl Confirm 11/12/20 12:13 Ondansetron 4 Mg/2 Ml Sdv Administered 11/12/20 12:14 Dose 4 mg .ROUTE .STK-MED ONE Ondansetron HCl 4 mg 11/12/20 17:03 Ondansetron 4 Mg/2 Ml Sdv IM 11/12/20 17:04 ONETIME ONE Departure - Departure Time of Disposition: 15:15 Disposition: DC/Tfer to Acute Hospital 02 Condition: Good Clinical Impression: Hip fracture, right Qualifiers: Encounter type: initial encounter Fracture type: closed Qualified Code(s): S72.001A - Fracture of unspecified part of neck of right femur, initial encounter for closed fracture Lumbar vertebral fracture Qualifiers: Encounter type: initial encounter Lumbar vertebra fracture level: L5 Fracture type: closed Fracture morphology: other fracture Qualified Code(s): S32.058A - Other fracture of fifth lumbar vertebra, initial encounter for closed fracture - Discharge Information *PRESCRIPTION DRUG MONITORING PROGRAM REVIEWED*: Not Applicable *COPY OF PRESCRIPTION DRUG MONITORING REPORT IN PATIENT GIRMA: Not Applicable Instructions: Lumbar Spine Fracture, Hip Fracture Referrals: PCP,None [Primary Care Provider] - Forms: ED Department Discharge Additional Instructions: Patient transferred to [facility] admission through the ED, accepted by Dr. Cardona to facilitate Ortho and Neuro Spine consultation. For treatment and repair. [facility] was the closest facility with Neuro surgery capabilities. Padilla was first consult. Sepsis Event Note (ED) - Evaluation Sepsis Screening Result: No Definite Risk - Focused Exam Vital Signs: Vital Signs Temp Pulse Resp BP Pulse Ox 11/12/20 11:45 36.3 C 100 16 149/75 H 90 L - Problem List & Annotations (1) Closed right hip fracture SNOMED Code(s): 698111724 Code(s): S72.001A - FRACTURE OF UNSP PART OF NECK OF RIGHT FEMUR, INIT Status: Acute Priority: High Current Visit: Yes Onset Date: ~11/12/20 Qualifiers: Encounter type: initial encounter Qualified Code(s): S72.001A - Fracture of unspecified part of neck of right femur, initial encounter for closed fracture (2) Osteoarthritis (arthritis due to wear and tear of joints) SNOMED Code(s): 459741407 Code(s): M19.90 - UNSPECIFIED OSTEOARTHRITIS, UNSPECIFIED SITE Status: Acute Priority: Low Current Visit: No Qualifiers: Osteoarthritis location: hip Osteoarthritis type: primary Laterality: bilateral Qualified Code(s): M16.0 - Bilateral primary osteoarthritis of hip - Problem List Review Problem List Initiated/Reviewed/Updated: Yes - My Orders Last 24 Hours: My Active Orders 11/12/20 Abdomen w Cont [CT] Stat Chest w Cont [CT] Stat 11/12/20 11:43 Lumbar Spine wo Cont [CT] Stat 11/12/20 11:47 Morphine 1 mg SUBCUT Q1H PRN 11/12/20 13:45 Iopamidol [Isovue-300 (61%)] 100 ml IV . DIRECTED Sodium Chloride 0.9% [Normal Saline] 50 ml IV ASDIRECTED - Assessment/Plan Last 24 Hours: My Active Orders 11/12/20 Abdomen w Cont [CT] Stat Chest w Cont [CT] Stat 11/12/20 11:43 Lumbar Spine wo Cont [CT] Stat 11/12/20 11:47 Morphine 1 mg SUBCUT Q1H PRN 11/12/20 13:45 Iopamidol [Isovue-300 (61%)] 100 ml IV . DIRECTED Sodium Chloride 0.9% [Normal Saline] 50 ml IV ASDIRECTED Assessment:: Rt hip non-displaced fx. Lumbar L5-/ L3 possible Fx
[2020-11-12] MEDS ORDERED: Morphine 2 MG/ML SYRINGE IVPUSH ONE (13:30)
[2020-11-12] MEDS ORDERED: Iopamidol 612 MG/ML 100 ML Bottle IV SCH (13:45)
[2020-11-12] MEDS ORDERED: Sodium Chloride 0.9% 50 ML IV SCH (13:45)
[2020-11-12 13:57] VITALS: BP 149/75; PULSE 100
--- NOTE | 2020-11-12 16:38 | CT ---
DATE OF SERVICE: 11/12/2020 CLINICAL DATA: FALL. UNENHANCED BRAIN CT: Multislice acquisition through the brain without IV contrast was performed. No priors. There is significant metallic beam hardening and streak artifact produced by the patient's stretcher. There is diffuse atrophy. There are periventricular lucencies bilaterally consistent with small vessel ischemic change. No masses. No evidence of intracranial hemorrhage. No evidence of acute or subacute infarct. No fractures. IMPRESSION: Suboptimal quality exam produced by metallic beam hardening and streak artifact. No gross abnormalities. A repeat scan is recommended. [id number] [facility]
--- NOTE | 2020-11-12 16:42 | CT ---
DATE OF SERVICE: 11/12/2020 CLINICAL DATA: Fall. PELVIC CT: Multislice acquisition through the pelvis without IV or oral contrast was performed. There is a comminuted, impacted, mildly displaced fracture through the right femoral head. No other acute fractures. There is a large amount of fluid noted within pelvis consistent with ascites. [id number] [facility]
--- NOTE | 2020-11-12 16:55 | CT ---
DATE OF SERVICE: CLINICAL DATA: FALL. CT CERVICAL SPINE: Multislice axial acquisition was performed. Axial images and sagittal and coronal reformations are reviewed. There is mild reversal of the normal cervical lordosis on the sagittal reformations. This is most likely positional or due to muscle spasm. No acute fracture or dislocation. No lytic or blastic bone lesions. There is degenerative disc disease at multiple levels. The soft tissues are unremarkable. IMPRESSION: No acute abnormalities. [id number] [facility]
[2020-11-12] MEDS ORDERED: Ondansetron 4 MG/2 ML SDV IM ONE (17:03)
--- NOTE | 2020-11-12 17:04 | CT ---
DATE OF SERVICE: 11/12/2020 CLINICAL DATA: Fall. THORACIC SPINE CT: Multislice axial acquisition was performed. Axial images and sagittal and coronal reformations are reviewed. No priors. The vertebral bodies are of average height and in good alignment. No acute fracture or dislocation. No lytic or blastic bone lesions. There are disc margin spurs with disc space narrowing throughout the thoracic spine. No lytic or blastic bone lesions. There is fluid within the upper abdomen adjacent to the liver consistent with ascites. IMPRESSION: No acute abnormalities. [id number] [facility]
--- NOTE | 2020-11-12 17:18 | CT ---
DATE OF SERVICE: 11/12/2020 CLINICAL DATA: Fall. LUMBAR SPINE CT: Multislice axial acquisition was performed. Axial images and sagittal and coronal reformations are reviewed. There are subtle lucencies within the L3 and L5 vertebral bodies which may represent minimally displaced fractures. There is also mild deformity of the pedicle of L5 on the right which may represent fracture. No other evidence of fracture. No lytic or blastic bone lesions. There is degenerative disc disease at multiple levels, greatest at the L3-4, L4- 5, and L5-S1 levels. There is central foraminal stenosis at the L3-4 and L4-5 levels with mild foraminal stenosis noted at the L2-3, L3-4, L4-5, and L5-S1 levels bilaterally. There is free fluid within the peritoneal cavity consistent with ascites. [id number] [facility]
--- NOTE | 2020-11-12 17:26 | CT ---
DATE OF SERVICE: 11/12/2020 CLINICAL DATA: FALL. ENHANCED CHEST CT: Multislice acquisition through the chest with IV contrast was performed. Comparison is made to a prior exam dated 11/06/2020. Motion artifact degrades study quality. There are atelectatic changes in the dependent portion of both lungs with an area of consolidation in the right lower lobe and right costophrenic angle. Pneumonia should be considered. The lungs otherwise clear. No pneumothorax. No pleural effusions. The heart size is normal. No significant pericardial effusion. There are mild coronary artery calcifications. No aortic aneurysm or dissection. No hilar or mediastinal adenopathy. There is a large amount of fluid in the pelvis consistent with ascites. The liver has a lobulated contour consistent with cirrhosis. There is splenomegaly. [id number] [facility]
--- NOTE | 2020-11-12 17:32 | CT ---
DATE OF SERVICE: 11/12/2020 CLINICAL DATA: FALL. ENHANCED ABDOMEN CT: Multislice acquisition through the abdomen with IV, but without oral contrast was performed. No priors. There is a large amount of free fluid throughout the peritoneal cavity consistent with ascites. The liver is abnormal. It has lobulated contour consistent with cirrhosis. No focal hepatic lesions. The patient is status post cholecystectomy. There is moderate splenomegaly. The pancreas is mildly atrophic, otherwise normal. The right and left adrenals appear normal. The right and left kidneys appear normal and enhance symmetrically. No hydronephrosis or hydroureter. No free air. No dilated loops of bowel. No adenopathy. No aortic aneurysm or dissection. There is a fat containing umbilical hernia. IMPRESSION: Ascites. Splenomegaly. Abnormal liver consistent with cirrhosis. No acute abnormalities. [id number] [facility]
== END 2020-11-12 14:47 ==
LOC: LB.ED 11:32
DX: S72.051A Unspecified fracture of head of right femur, initial encounter for closed fracture (principal); S32.058A Other fracture of fifth lumbar vertebra, initial encounter for closed fracture; I10 Essential (primary) hypertension; J45.909 Unspecified asthma, uncomplicated; E11.9 Type 2 diabetes mellitus without complications; M19.90 Unspecified osteoarthritis, unspecified site; Z79.4 Long term (current) use of insulin; Z79.899 Other long term (current) drug therapy; Z87.891 Personal history of nicotine dependence; Z20.822 Contact with and (suspected) exposure to COVID-19; W19.XXXA Unspecified fall, initial encounter
CPT/HCPCS: 36415; 70450; 71260; 72125; 72128; 72131; 72192; 74160; 80053; 85025; 85610; 86850; 86900; 86901; 96372; 96374; 99285; 99285-25; A0425; A0429; A9270-GY; J2270; J2405; Q9967; U0002